=== PATIENT | male | born 1975 | race Caucasian/White ===

== ENCOUNTER 2020-11-09 14:05 | Emergency (ER) | payer MEDICAID ==
[2020-11-09] MEDS ORDERED: Sodium Chloride 0.9% 10 ML Syringe FLUSH PRN (14:29)
[2020-11-09] MEDS ORDERED: Piperacillin/Tazobactam 4.5 GM in Sodium Chloride 0.9% 100 ML IV ONE (14:36)
[2020-11-09] MEDS ORDERED: Lactated Ringers 1,000 ML IV SCH (14:45)
[2020-11-09 15:00] VITALS: BP 144/83; PULSE 85
--- NOTE | 2020-11-09 15:03 | EDM.PDOC ---
ED HPI GENERAL MEDICAL PROBLEM - General Stated Complaint: INFECTION IN RIGHT FOOT Time Seen by Provider: 11/09/20 14:30 Source of Information: Reports: Patient History Limitations: Reports: No Limitations - History of Present Illness INITIAL COMMENTS - FREE TEXT/NARRATIVE: Patient comes emergency department today with complaints of a possible infection to his right lower extremity. This patient is a diabetic who does not know when the redness and irritation started to his right foot is he has diabetic neuropathy and does not have much sensation in his lower extremities. He noticed today that he had quite a bit of blood on his sock when he was changing it so he actually looked at his foot today and noticed that it was quite red and swollen and hot to touch primarily the fourth toe and on the dorsum of the forefoot as well. He denies any recent injury trauma or breaks in the skin to the right lower extremity. He does complain of generalized malaise fatigue and some body aches. Subjective fever and chills. No cough no shortness of breath or difficulty breathing. No weakness dizziness lightheadedness. No abdominal pain nausea or vomiting. He is a diabetic who states his blood sugars have been absolutely perfect at 120 for the last I don't know how many days. No COVID exposure no COVID symptoms. Right Foot Pain Score (Numeric/FACES): 4 - Related Data Allergies Allergy/AdvReac Type Severity Reaction Status Date / Time No Known Allergies Allergy Verified 11/09/20 15:03 Home Meds: Home Meds Levothyroxine 112 mcg PO DAILY 10/21/16 [History] Pregabalin [Lyrica] 75 mg PO BID 10/21/16 [History] atorvaSTATin [Lipitor] 80 mg PO BEDTIME 10/21/16 [History] sitaGLIPtin Phos/Metformin HCl [Janumet Xr 100-1,000 mg Tablet] 1 tab PO DAILY 10/21/16 [History] Metoprolol Tartrate [Lopressor] 12.5 mg PO Q12HR 08/25/17 [History] Aspirin 81 mg PO DAILY 11/09/20 [History] glipiZIDE [Glipizide ER] 10 mg PO DAILY 11/09/20 [History] Past Medical History HEENT History: Reports: Other (See Below) Other HEENT History: tooth pain Cardiovascular History: Reports: High Cholesterol, RI, Stents Neurological History: Reports: Neuropathy, Diabetic Endocrine/Metabolic History: Reports: Hypothyroidism Social & Family History - Family History Family Medical History: No Pertinent Family History Review of Systems - Review of Systems Review Of Systems: Comprehensive ROS is negative, except as noted in HPI. ED EXAM, GENERAL - Physical Exam Exam: See Below Exam Limited By: No Limitations General Appearance: Alert, WD/WN, No Apparent Distress Ears: Normal External Exam Nose: Normal Inspection Throat/Mouth: Normal Inspection Head: Atraumatic, Normocephalic Neck: Normal Inspection, Supple Respiratory/Chest: No Respiratory Distress, Lungs Clear, Normal Breath Sounds, Chest Non-Tender Cardiovascular: Normal Peripheral Pulses, Regular Rate, Rhythm Peripheral Pulses: 2+: Radial (L), Radial (R), Posterior Tibial (L), Posterior Tibial (R), Dorsalis Pedis (L), Dorsalis Pedis (R) GI/Abdominal: Normal Bowel Sounds, Soft (Male) Exam: Deferred Rectal (Males) Exam: Deferred Back Exam: Normal Inspection, Full Range of Motion Extremities: Normal Range of Motion, Normal Capillary Refill. No: Normal Inspection (His left lower extremity is unremarkable. His right lower extremity is fourth toe on the right foot is quite erythematous swollen. There is erythema of the third fourth and fifth toes more of the fourth toe than anything. There is also some erythema extending up the dorsum of the foot. There is a partial-thickness diabetic type ulcer on the right distal lateral fourth digit touching the fifth toe. There is a small amount of bleeding and discharge. A culture was obtained from this. This is more of a generalized erythema without lymphangitis. No other breaks in the skin. He has palpable pulses.) Neurological: Alert, Oriented, Normal Cognition, No Motor/Sensory Deficits Psychiatric: Normal Affect, Normal Mood Skin Exam: Warm, Dry, Intact, Normal Color, No Rash Course - Vital Signs Last Recorded V/S: Last Vital Signs Temp 97.2 F 11/09/20 14:10 Pulse 85 11/09/20 14:10 Resp 16 11/09/20 14:10 BP 144/83 H 11/09/20 14:10 Pulse Ox 99 11/09/20 14:10 - Orders/Labs/Meds Orders: Active Orders 24 hr Category Date Time Status CULTURE BLOOD [BC] Stat Lab 11/09/20 14:39 Received CULTURE BLOOD [BC] Stat Lab 11/09/20 14:44 Received CULTURE WOUND [RM] Stat Lab 11/09/20 14:45 Received Blood Culture x2 Reflex Set [OM.PC] Stat Oth 11/09/20 14:30 Ordered Peripheral IV Insertion Adult [OM.PC] Stat Oth 11/09/20 14:29 Ordered Labs: Laboratory Tests 11/09/20 11/09/20 11/09/20 Range/Units 14:39 14:39 14:39 WBC 11.2 H (4.0-10.0) x10^3/uL RBC 4.33 L (4.5-6.0) x10^6/uL Hgb 14.0 (14.0-18.0) g/dL Hct 39.5 L (40.0-52.0) % MCV 91.2 (78.0-93.0) fL MCH 32.3 H (26.0-32.0) pg MCHC 35.4 (32.0-36.0) g/dL RDW Coeff of Vishal 12.4 (10.0-15.0) % Plt Count 138 (130-400) x10^3/uL Neut % (Auto) 78.2 (50.0-80.0) % Lymph % (Auto) 12.7 L (25.0-50.0) % [place] % (Auto) 6.0 (2.0-11.0) % Eos % (Auto) 2.9 (0.0-4.0) % Baso % (Auto) 0.2 (0.2-1.2) % Sodium 136 (136-145) mmol/L Potassium 3.7 (3.5-5.1) mmol/L Chloride 98 (98-107) mmol/L Carbon Dioxide 31 (21-32) mmol/L Anion Gap 10.7 (5-15) mmol/L BUN 14 (7-18) mg/dL Creatinine 1.1 (0.70-1.30) mg/dL Est Cr Clr Drug Dosing TNP Estimated GFR (MDRD) > 60 Glucose 280 H (74-106) mg/dL Lactic Acid 1.1 (0.4-2.0) mmol/L Calcium 8.9 (8.5-10.1) mg/dL Corrected Calcium 9.14 (8.5-10.1) mg/dL Total Bilirubin 0.8 (0.2-1.0) mg/dL AST 16 (15-37) U/L ALT 29 (16-63) U/L Alkaline Phosphatase 116 (46-116) U/L C-Reactive Protein 16.5 H (<=0.9) mg/dL Total Protein 7.9 (6.4-8.2) g/dL Albumin 3.7 (3.4-5.0) g/dL Globulin 4.2 Albumin/Globulin Ratio 0.88 Meds: Medications Discontinued Medications Generic Name Dose Route Start Last Admin Trade Name Freq PRN Reason Stop Dose Admin Piperacillin Sod/Tazobactam 100 mls @ 200 mls/hr 11/09/20 14:36 11/09/20 14:51 Sod 4.5 gm/ Sodium Chloride IV 11/09/20 15:05 200 mls/hr STAT ONE Administration Vancomycin HCl 1.5 gm/ Sodium 250 mls @ 250 mls/hr 11/09/20 14:36 11/09/20 15:28 Chloride IV 11/09/20 15:35 250 mls/hr STAT ONE Administration Lactated Ringer's 1,000 mls @ 125 mls/hr 11/09/20 14:45 11/09/20 14:50 Ringers, Lactated IV 125 mls/hr ASDIRECTED YURY Administration Iopamidol 100 ml 11/09/20 16:00 11/09/20 16:02 Isovue-300 (61%) IVPUSH 11/09/20 16:01 100 ml ONETIME ONE Administration Sodium Chloride 10 ml 11/09/20 14:29 Saline Flush FLUSH ASDIRECTED PRN Keep Vein Open - Radiology Interpretation Free Text/Narrative:: CT of the right lower extremity per radiology shows no CT evidence of osteomyelitis consider MRI diffuse soft tissue edema consistent with cellulitis. No fluid collection for diagnosis of abscess. No destructive bone change. - Re-Assessments/Exams Free Text/Narrative Re-Assessment/Exam: 11/09/20 15:05 IV was established blood was drawn. Blood cultures x2 pending. Culture of the discharge from the right fourth toe obtained and sent to the lab. Zosyn 4.5 g IV piggyback for the coverage of Pseudomonas and vancomycin 1.5 g IV piggyback for MRSA coverage. CT with contrast lower extremity assessing for osteo and/or abscess. 11/09/20 Laboratory evaluation with a white blood cell count of 11.2, hemoglobin 14 platelets normal. CMP unremarkable other than a blood sugar of 280. Patient stated that he had eaten multiple bowls of soup as well as a sandwich prior to presentation in the emergency department has been taking his diabetic medications as prescribed. C-reactive protein 16.5. CT scan negative for any osteomyelitis and/or abscess. Although it is only been a short period of time the patient feels that his foot feels better and he is able to move it more and it is not as tight as when he initially got here. I did outline the erythema on his right foot. I would like him to receive IV antibiotics at least for the next 24 hours if not longer. I did offer observation and/or outpatient antibiotic therapy for which he chose outpatient antibiotic therapy. And watch his blood sugars closely at home and document them and bring them in so I can evaluate if he needs better management of his diabetes during this infection. Recheck him at 24 hours to determine if we continue with IV antibiotics or switch to orals. If it anytime the erythema spreads outside the line determined in the emergency department or develops worsening systemic complaints we will hospitalize him. He is comfortable with this plan his questions are answered. Detailed instructions were given to him to when to return for his outpatient antibiotics for Zosyn as well as vancomycin. We are doing high-dose Zosyn for the coverage Pseudomonas as this is a diabetic severe foot infection with some maceration between the toes. Departure - Departure Time of Disposition: 17:45 Disposition: Home, Self-Care 01 Clinical Impression: Diabetic infection of right foot Type 2 diabetes mellitus Qualifiers: Diabetes mellitus watermaster insulin use: without watermaster use Diabetes mellitus complication status: with other specified complication Qualified Code(s): E11.69 - Type 2 diabetes mellitus with other specified complication - Discharge Information Instructions: Type 2 Diabetes Mellitus, Self Care, Adult, [id number] Referrals: PCP,None [Primary Care Provider] - Forms: ED Department Discharge Additional Instructions: Return for outpatient antibiotics for at least the next 24 hrs. 9pm tonight. 3am 11/10/20, 9am and 3pm. I will see you in about 24 hours to see how the therapy is going. Please check your blood sugars 4 times a day at home as well. Tylenol as needed for pain. Cleanse the wound on your foot twice daily with soap and water. Dry your foot and then allow to air dry. Make sure and dry between your toes. Put that dressing between your 4th and 5th toes to the right foot until it is healed. Return if anything new or worse. Sepsis Event Note (ED) - Focused Exam Vital Signs: Vital Signs Temp Pulse Resp BP Pulse Ox 11/09/20 14:10 97.2 F 85 16 144/83 H 99 - My Orders Last 24 Hours: My Active Orders 11/09/20 14:29 Peripheral IV Insertion Adult [OM.PC] Stat 11/09/20 14:30 Blood Culture x2 Reflex Set [OM.PC] Stat 11/09/20 14:39 CULTURE BLOOD [BC] Stat 11/09/20 14:44 CULTURE BLOOD [BC] Stat 11/09/20 14:45 CULTURE WOUND [RM] Stat - Assessment/Plan Last 24 Hours: My Active Orders 11/09/20 14:29 Peripheral IV Insertion Adult [OM.PC] Stat 11/09/20 14:30 Blood Culture x2 Reflex Set [OM.PC] Stat 11/09/20 14:39 CULTURE BLOOD [BC] Stat 11/09/20 14:44 CULTURE BLOOD [BC] Stat 11/09/20 14:45 CULTURE WOUND [RM] Stat Assessment:: Severe diabetic foot infection DM II Hyperglycemia Plan: Return for outpatient antibiotics for at least the next 24 hrs. 9pm tonight. 3am 11/10/20, 9am and 3pm. I will see you in about 24 hours to see how the therapy is going. Please check your blood sugars 4 times a day at home as well. Tylenol as needed for pain. Cleanse the wound on your foot twice daily with soap and water. Dry your foot and then allow to air dry. Make sure and dry between your toes. Put that dressing between your 4th and 5th toes to the right foot until it is healed. Return if anything new or worse.
[2020-11-09 15:16] LABS: CHLORIDE,CL 98 mmol/L (98-107); SODIUM,NA 136 mmol/L (136-145)
[2020-11-09 15:17] LABS: ANION GAP 10.7 mmol/L (5-15)
[2020-11-09] MEDS ORDERED: Iopamidol 612 MG/ML 50 ML SDV IARTIC ONE (15:53)
[2020-11-09] MEDS ORDERED: Iopamidol 612 MG/ML 100 ML Bottle IVPUSH ONE (16:00)
--- NOTE | 2020-11-09 16:13 | CT ---
[id number] CT/CT Foot Right W IV Exam: CT Foot Right W IV Clinical Data: DIABETIC FOOT INFECTION COMPARISON: NO PREVIOUS SIMILAR EXAM IS AVAILABLE FINDINGS: There is soft tissue edema There is no destructive bone change There is no air in the soft tissues either. There is no radiopaque foreign body There is no discrete fluid collection seen to make the diagnosis of an abscess There is likely tenosynovitis involving the plantar tendon IMPRESSION: NO CT EVIDENCE OF OSTEOMYELITIS CONSIDER MRI WHEN AVAILABLE DIFFUSE SOFT TISSUE EDEMA CONSISTENT WITH CELLULITIS Dallas Valles MD 11/09/20 [id number] Thank you for allowing us to participate in the care of your patient.
== END 2020-11-09 17:58 | disposition home or self-care (01) ==
LOC: VM.ED 14:05
DX: E11.621 Type 2 diabetes mellitus with foot ulcer (principal); L97.519 Non-pressure chronic ulcer of other part of right foot with unspecified severity; E11.69 Type 2 diabetes mellitus with other specified complication; L08.9 Local infection of the skin and subcutaneous tissue, unspecified; E78.00 Pure hypercholesterolemia, unspecified; E11.40 Type 2 diabetes mellitus with diabetic neuropathy, unspecified; I25.2 Old myocardial infarction; Z95.5 Presence of coronary angioplasty implant and graft; E03.9 Hypothyroidism, unspecified; Z79.82 Long term (current) use of aspirin; Z79.84 Long term (current) use of oral hypoglycemic drugs
CPT/HCPCS: 36415; 73701; 80053; 83605; 85025; 86140; 87040; 87070; 96365; 96366; 96367; 99284; 99284-25; J2543; J3370; J7050; J7120; Q9967

== ENCOUNTER 2024-04-16 22:45 | Emergency (ER) | payer MEDICAID ==
[2024-04-16] MEDS: Ondansetron 4 MG Tab.DIS PO ONE (23:04)
[2024-04-16] MEDS: Alum Hydrox/Mag Hydrox/Simeth 30 ML, Lidocaine 2% 15 ML PO ONE (23:04)
[2024-04-16 23:10] VITALS: BP 95/60; PULSE 80
[2024-04-16 23:42] LABS: BASOPHILS PERCENT AUTO 0.3 % (0.2-1.2); EOSINOPHILS ABSOLUTE AUTO 0.2 x10^3/uL (0.0-0.5); HEMATOCRIT 37.8 % (40.0-52.0); HEMOGLOBIN 13.5 g/dL (14.0-18.0); IMMATURE GRAN ABSOLUTE AUTO 0.02 x10^3/uL (0.00-0.07); LYMPHOCYTES ABSOLUTE AUTO 1.5 x10^3/uL (1.0-4.8); LYMPHOCYTES PERCENT AUTO 14.6 % (25.0-50.0); MEAN CORPUSCULAR HEMOGLOBIN 32.2 pg (26.0-32.0); MEAN CORPUSCULAR HGB CONC 35.7 g/dL (32.0-36.0); MEAN CORPUSCULAR VOLUME 90.2 fL (78.0-93.0); MONOCYTES ABSOLUTE AUTO 0.6 x10^3/uL (0.0-0.8); MONOCYTES PERCENT AUTO 5.7 % (2.0-11.0); NEUTROPHILS ABSOLUTE AUTO 7.7 x10^3/uL (1.8-7.7); NEUTROPHILS PERCENT AUTO 77.2 % (50.0-80.0); PLATELET COUNT,PLT 173 x10^3/uL (130-400); RED BLOOD CELL COUNT 4.19 x10^6/uL (4.5-6.0)
[2024-04-17] LABS: LACTIC ACID 0.8 mmol/L (0.4-2.0)
[2024-04-17 00:07] LABS: A/G RATIO 0.84; ALANINE AMINOTRANSFERASE,ALT 24 U/L (16-63); ALBUMIN 3.2 g/dL (3.4-5.0); ALKALINE PHOSPHATASE 213 U/L (46-116); AMYLASE 38 U/L (25-115); ANION GAP 15.4 mmol/L (5-15); ASPARTATE AMNIOTRANSFERASE,AST 11 U/L (15-37); BILIRUBIN TOTAL 0.4 mg/dL (0.2-1.0); BLOOD UREA NITROGEN,BUN 25 mg/dL (7-18); C-REACTIVE PROTEIN 1.15 mg/dL (<=0.50); CALCIUM 9.4 mg/dL (8.5-10.1); CARBON DIOXIDE,CO2 29 mmol/L (21-32); CHLORIDE,CL 93 mmol/L (98-107); CREATININE 1.3 mg/dL (0.70-1.30); LIPASE 196 U/L (19-71); POTASSIUM,K 4.4 mmol/L (3.5-5.1); SODIUM,NA 133 mmol/L (136-145)
[2024-04-17 00:08] LABS: ESTIMATED GFR 67 mL/min (>=60); GLUCOSE RANDOM 570 mg/dL (70-99)
[2024-04-17] MEDS: Lactated Ringers 1,000 ML IV ONE (00:15)
[2024-04-17 00:17] LABS: APPEARANCE,URINE CLEAR (CLEAR); BILIRUBIN,URINE NEGATIVE (NEGATIVE); COLOR,URINE YELLOW (YELLOW); GLUCOSE,URINE 500 mg/dL (NEGATIVE); KETONES,URINE 15 mg/dL (NEGATIVE); LEUKOCYTE ESTERASE,URINE NEGATIVE (NEGATIVE); NITRITE,URINE NEGATIVE (NEGATIVE); OCCULT BLOOD,URINE TRACE-INTACT (NEGATIVE); PH,URINE 6.5 (5.0-8.0); PROTEIN,URINE TRACE mg/dL (NEGATIVE); UROBILINOGEN,URINE 0.2 EU/dL (0.2)
[2024-04-17 00:18] LABS: BACTERIA,URINE NOT SEEN /HPF (NOT SEEN); HYALINE CASTS,URINE OCCASIONAL; SQUAMOUS EPITHELIAL CELLS,UR NOT SEEN /HPF (NOT SEEN); WBC,URINE 0-5 /HPF (NOT SEEN)
[2024-04-17 00:19] LABS: MUCUS,URINE RARE /LPF (NOT SEEN); RBC,URINE 0-5 /HPF (NOT SEEN)
[2024-04-17 00:36] LABS: HCO3 VENOUS,POC 27 mmol/L (22-29); O2 SATURATION VENOUS,POC 80 %; PCO2 VENOUS,POC 37 mmHg (41-51); PH VENOUS,POC 7.47 pH (7.32-7.43); PO2 VENOUS,POC 42 mmHg
== END 2024-04-17 00:56 | disposition left against medical advice (07) ==
LOC: VM.ED 22:45
DX: K85.90 Acute pancreatitis without necrosis or infection, unspecified (principal); E86.0 Dehydration; E11.65 Type 2 diabetes mellitus with hyperglycemia; E78.00 Pure hypercholesterolemia, unspecified; I25.2 Old myocardial infarction; I50.9 Heart failure, unspecified; E11.40 Type 2 diabetes mellitus with diabetic neuropathy, unspecified; E03.9 Hypothyroidism, unspecified; F17.210 Nicotine dependence, cigarettes, uncomplicated; Z95.5 Presence of coronary angioplasty implant and graft; Z79.890 Hormone replacement therapy; Z79.82 Long term (current) use of aspirin; Z79.899 Other long term (current) drug therapy; Z79.84 Long term (current) use of oral hypoglycemic drugs
CPT/HCPCS: 36415; 74019; 80053; 81001; 82150; 82803; 83605; 83690; 85025; 86140; 96360; 99284; A9270; J7120

== ENCOUNTER 2024-04-19 02:39 | Emergency (ER) | payer SELFPAY ==
[2024-04-19 02:54] VITALS: BP 109/76; PULSE 89
[2024-04-19] MEDS: Magnesium Citrate Solution 296 ML Bottle PO ONE (02:58)
== END 2024-04-19 03:01 | disposition home or self-care (01) ==
LOC: VM.ED 02:39
DX: K59.00 Constipation, unspecified (principal); E78.00 Pure hypercholesterolemia, unspecified; E10.21 Type 1 diabetes mellitus with diabetic nephropathy; E03.9 Hypothyroidism, unspecified; Z79.899 Other long term (current) drug therapy; Z79.82 Long term (current) use of aspirin
CPT/HCPCS: 99283

== ENCOUNTER 2024-08-17 14:57 | Emergency (ER) | payer MEDICARE, MEDICAID ==
[2024-08-17 17:03] VITALS: BP 102/62; PULSE 82
== END 2024-08-17 17:09 | disposition home or self-care (01) ==
LOC: VM.ED 14:57
DX: J40 Bronchitis, not specified as acute or chronic (principal); J18.9 Pneumonia, unspecified organism; E78.00 Pure hypercholesterolemia, unspecified; I25.2 Old myocardial infarction; E10.40 Type 1 diabetes mellitus with diabetic neuropathy, unspecified; E03.9 Hypothyroidism, unspecified; Z79.82 Long term (current) use of aspirin; Z79.899 Other long term (current) drug therapy
CPT/HCPCS: 71045; 87428-QW; 99283

== ENCOUNTER 2024-08-21 08:45 | Emergency (ER) | payer MEDICARE, MEDICAID ==
[2024-08-21] MEDS: Lactated Ringers 1,000 ML IV ONE (08:55)
[2024-08-21] MEDS ORDERED: Sodium Chloride 0.9% 10 ML Syringe FLUSH PRN (08:57)
[2024-08-21 09:27] LABS: HCO3 VENOUS,POC 26 mmol/L (22-29); O2 SATURATION VENOUS,POC 50 %; PCO2 VENOUS,POC 44 mmHg (41-51); PH VENOUS,POC 7.38 pH (7.32-7.43); PO2 VENOUS,POC 27 mmHg
[2024-08-21 09:32] LABS: HEMATOCRIT 36.5 % (40.0-52.0); HEMOGLOBIN 12.4 g/dL (14.0-18.0); MEAN CORPUSCULAR HEMOGLOBIN 32.9 pg (26.0-32.0); MEAN CORPUSCULAR VOLUME 96.8 fL (78.0-93.0); PLATELET COUNT,PLT 206 x10^3/uL (130-400); RED BLOOD CELL COUNT 3.77 x10^6/uL (4.5-6.0); WHITE BLOOD CELL COUNT,WBC 17.3 x10^3/uL (4.0-10.0)
[2024-08-21] MEDS: cefTRIAXone 1 GM Vial IVPUSH ONE (09:42)
[2024-08-21 09:47] LABS: LACTIC ACID 1.1 mmol/L (0.4-2.0)
[2024-08-21 09:50] LABS: INR 0.9 (0.9-1.1); PROTHROMBIN TIME 9.2 SEC (8.9-11.5); PTT,PARTIAL THROMBOPLSTIN TIME 31.7 SEC (21.9-33.8)
[2024-08-21 10:02] LABS: A/G RATIO 0.4; ALBUMIN 2.3 g/dL (3.4-5.0); BILIRUBIN TOTAL 1.1 mg/dL (0.2-1.0); CALCIUM 10.4 mg/dL (8.5-10.1); CREATININE 1.8 mg/dL (0.70-1.30); EST CRCL DRUG DOSING (CG) 48.55 mL/min; MAGNESIUM 2.1 mg/dL (1.8-2.4); POTASSIUM,K 5.1 mmol/L (3.5-5.1); PROTEIN TOTAL,TP 8.1 g/dL (6.4-8.2)
[2024-08-21 10:05] LABS: ANION GAP 19.1 mmol/L (5-15)
[2024-08-21 10:09] LABS: APPEARANCE,URINE CLEAR (CLEAR); BILIRUBIN,URINE NEGATIVE (NEGATIVE); COLOR,URINE LIGHT YELLOW (YELLOW); GLUCOSE,URINE 500 mg/dL (NEGATIVE); KETONES,URINE 15 mg/dL (NEGATIVE); LEUKOCYTE ESTERASE,URINE NEGATIVE (NEGATIVE); NITRITE,URINE NEGATIVE (NEGATIVE); OCCULT BLOOD,URINE NEGATIVE (NEGATIVE); PH,URINE 5.5 (5.0-8.0); PROTEIN,URINE 30 mg/dL (NEGATIVE); UROBILINOGEN,URINE 0.2 EU/dL (0.2)
[2024-08-21] MEDS ORDERED: Glucagon,Human Recombinant 1 MG Vial IM PRN (10:09)
[2024-08-21] MEDS ORDERED: 50% Dextrose in Water 50 ML Syringe IVPUSH PRN (10:09)
[2024-08-21 10:12] LABS: C-REACTIVE PROTEIN 56.92 mg/dL (<=0.50)
[2024-08-21 10:25] LABS: AMORPHOUS SEDIMENT,URINE MODERATE; BACTERIA,URINE NOT SEEN /HPF (NOT SEEN); HYALINE CASTS,URINE FEW; MUCUS,URINE NOT SEEN /LPF (NOT SEEN); RBC,URINE NOT SEEN /HPF (NOT SEEN); SQUAMOUS EPITHELIAL CELLS,UR RARE /HPF (NOT SEEN); WBC,URINE NOT SEEN /HPF (NOT SEEN)
[2024-08-21 10:30] LABS: BAND PERCENT MAN 6 % (0-6); LYMPHOCYTES ABSOLUTE MAN 0.9 x10^3/uL (1.0-4.8); LYMPHOCYTES PERCENT MAN 5 % (25-50); MONOCYTES ABSOLUTE MAN 0.7 x10^3/uL (0.0-0.8); MONOCYTES PERCENT MAN 4 % (2-11); NEUTROPHILS ABSOLUTE MAN 15.7 x10^3/uL (1.8-7.7); PLATELET COUNT ESTIMATE ADEQUATE; SEG NEUTROPHILS PERCENT MAN 85 % (50-80); TOXIC GRANULATION 1+ SLIGHT; VACUOLATED NEUTROPHILS 1+ SLIGHT
[2024-08-21] MEDS ORDERED: Insulin Regular in 0.9 % NACL 100 ML IV SCH (10:30)
[2024-08-21] MEDS ORDERED: Furosemide 40 MG Tab PO ONE (10:48)
[2024-08-21] MEDS: Furosemide 40 MG/4 ML VIAL IV ONE (10:57)
[2024-08-21] MEDS: Insulin Regular, Human 100 Units/ML 3 ML Vial IVPUSH ONE (10:59)
[2024-08-21] MEDS: Piperacillin/Tazobactam 4.5 GM in Sodium Chloride 0.9% 100 ML IV ONE (11:01)
[2024-08-21] MEDS: VANCOmycin 1.25 GM/250 ML 1.25 GM in Premix Bag 1 BAG IV ONE (11:04)
[2024-08-21] MEDS: Insulin Regular in 0.9 % NACL 100 ML IV SCH (11:05)
[2024-08-21] MEDS: fentaNYL 50 MCG/ML SDV IVPUSH ONE (11:52)
[2024-08-21 11:57] LABS: ANION GAP 21.6 mmol/L (5-15); CALCIUM 9.8 mg/dL (8.5-10.1); CREATININE 1.7 mg/dL (0.70-1.30); EST CRCL DRUG DOSING (CG) 51.41 mL/min; POTASSIUM,K 4.6 mmol/L (3.5-5.1)
[2024-08-21 12:43] VITALS: BP 128/78; PULSE 77
== END 2024-08-21 12:25 | disposition short-term general hospital (02) ==
LOC: VM.ED 08:45
DX: J96.90 Respiratory failure, unspecified, unspecified whether with hypoxia or hypercapnia (principal); E10.69 Type 1 diabetes mellitus with other specified complication; E87.0 Hyperosmolality and hypernatremia; I25.2 Old myocardial infarction; Z95.5 Presence of coronary angioplasty implant and graft; I25.10 Atherosclerotic heart disease of native coronary artery without angina pectoris; Z95.0 Presence of cardiac pacemaker
CPT/HCPCS: 36415; 51702; 71045; 80048; 80053; 81001; 82803; 82947; 83605; 83735; 83880; 84484; 85025; 85379; 85610; 85730; 86140; 87040; 87077; 87428; 94660; 96361; 96365; 96367; 96375; 99284; 99285; J0696; J1815; J1940; J2543; J3010; J3372; J3490; J7120

== ENCOUNTER 2024-08-27 09:26 | Inpatient (IN) | payer MEDICARE, MEDICAID ==
[2024-08-27] MEDS ORDERED: Nitroglycerin 0.4 MG Tab.SL SL PRN (16:36)
[2024-08-27] MEDS: Midodrine 5 MG Tab PO SCH (18:12)
[2024-08-27] MEDS: Insulin Lispro 100 Units/ML 3 ML Vial SUBCUT SCH (18:12)
[2024-08-27] MEDS: Enoxaparin 40 MG/0.4 ML Syringe SUBCUT SCH (20:23)
[2024-08-27] MEDS: Pregabalin 25 MG Cap PO SCH (20:23)
[2024-08-27] MEDS: Melatonin 3 MG Tab PO SCH (20:23)
[2024-08-28] MEDS: Levothyroxine 125 MCG Tab PO SCH (06:08)
[2024-08-28 08:00] LABS: BASOPHILS PERCENT AUTO 0.1 % (0.2-1.2); EOSINOPHILS PERCENT AUTO 0.4 % (0.0-4.0); HEMATOCRIT 31.2 % (40.0-52.0); HEMOGLOBIN 10.3 g/dL (14.0-18.0); IMMATURE GRAN ABSOLUTE AUTO 0.32 x10^3/uL (0.00-0.07); LYMPHOCYTES ABSOLUTE AUTO 0.9 x10^3/uL (1.0-4.8); LYMPHOCYTES PERCENT AUTO 8.1 % (25.0-50.0); MEAN CORPUSCULAR HEMOGLOBIN 32.5 pg (26.0-32.0); MEAN CORPUSCULAR VOLUME 98.4 fL (78.0-93.0); MONOCYTES ABSOLUTE AUTO 0.6 x10^3/uL (0.0-0.8); MONOCYTES PERCENT AUTO 5.5 % (2.0-11.0); NEUTROPHILS ABSOLUTE AUTO 9.4 x10^3/uL (1.8-7.7); NEUTROPHILS PERCENT AUTO 83.1 % (50.0-80.0); PLATELET COUNT,PLT 345 x10^3/uL (130-400); RED BLOOD CELL COUNT 3.17 x10^6/uL (4.5-6.0); WHITE BLOOD CELL COUNT,WBC 11.3 x10^3/uL (4.0-10.0)
[2024-08-28] MEDS: Cefuroxime 250 MG Tab PO SCH (08:09)
[2024-08-28] MEDS: atorvaSTATin 40 MG Tab PO SCH (08:09)
[2024-08-28] MEDS: predniSONE 10 MG Tab PO SCH (08:09)
[2024-08-28] MEDS: Multivitamin Tab PO SCH (08:10)
[2024-08-28] MEDS: Aspirin 81 MG Tab.EC PO SCH (08:10)
[2024-08-28] MEDS: Magnesium Oxide 400 MG Tab PO SCH (08:10)
[2024-08-28] MEDS: Pantoprazole 40 MG Tab.CR PO SCH (08:10)
[2024-08-28] MEDS: Metoprolol Succinate 25 MG Tab.ER PO SCH (08:11)
[2024-08-28] MEDS: Lisinopril 2.5 MG Tab PO SCH (08:12)
[2024-08-28] MEDS: Insulin Glarg,Human.Rec.Analog 100 Unit/ML 10 ML Vial SUBCUT SCH (08:13)
[2024-08-28 08:25] LABS: A/G RATIO 0.37; ALBUMIN 1.7 g/dL (3.4-5.0); BILIRUBIN TOTAL 0.3 mg/dL (0.2-1.0); CALCIUM 8.6 mg/dL (8.5-10.1); CREATININE 0.9 mg/dL (0.70-1.30); EST CRCL DRUG DOSING (CG) 97.1 mL/min; MAGNESIUM 1.8 mg/dL (1.8-2.4); POTASSIUM,K 4.1 mmol/L (3.5-5.1); PROTEIN TOTAL,TP 6.3 g/dL (6.4-8.2)
[2024-08-28 08:34] LABS: ANION GAP 9.1 mmol/L (5-15)
[2024-08-28] MEDS ORDERED: Enoxaparin 40 MG/0.4 ML Syringe SUBCUT SCH (09:00)
[2024-08-28] MEDS: Acetaminophen 650 MG Tab.ER PO PRN (11:26)
[2024-08-29] MEDS: Furosemide 20 MG Tab PO SCH (08:34)
[2024-08-29] MEDS: Insulin Glarg,Human.Rec.Analog 100 Unit/ML 10 ML Vial SUBCUT SCH (08:56)
[2024-08-30 07:34] LABS: CALCIUM 8.1 mg/dL (8.5-10.1); CREATININE 0.9 mg/dL (0.70-1.30); EST CRCL DRUG DOSING (CG) 97.1 mL/min; POTASSIUM,K 3.9 mmol/L (3.5-5.1)
[2024-08-30 07:40] LABS: ANION GAP 9.9 mmol/L (5-15)
[2024-08-31 06:56] LABS: HEMATOCRIT 29.4 % (40.0-52.0); HEMOGLOBIN 9.9 g/dL (14.0-18.0); MEAN CORPUSCULAR HEMOGLOBIN 32.6 pg (26.0-32.0); MEAN CORPUSCULAR HGB CONC 33.7 g/dL (32.0-36.0); MEAN CORPUSCULAR VOLUME 96.7 fL (78.0-93.0); RED BLOOD CELL COUNT 3.04 x10^6/uL (4.5-6.0); WHITE BLOOD CELL COUNT,WBC 11.2 x10^3/uL (4.0-10.0)
[2024-09-03 06:56] LABS: HEMATOCRIT 30.1 % (40.0-52.0); HEMOGLOBIN 9.9 g/dL (14.0-18.0); MEAN CORPUSCULAR HEMOGLOBIN 32.4 pg (26.0-32.0); MEAN CORPUSCULAR HGB CONC 32.9 g/dL (32.0-36.0); MEAN CORPUSCULAR VOLUME 98.4 fL (78.0-93.0); RED BLOOD CELL COUNT 3.06 x10^6/uL (4.5-6.0); WHITE BLOOD CELL COUNT,WBC 9.6 x10^3/uL (4.0-10.0)
[2024-09-03 07:31] LABS: A/G RATIO 0.41; BILIRUBIN TOTAL 0.3 mg/dL (0.2-1.0); CALCIUM 8.8 mg/dL (8.5-10.1); CREATININE 0.9 mg/dL (0.70-1.30); EST CRCL DRUG DOSING (CG) 97.1 mL/min; POTASSIUM,K 3.9 mmol/L (3.5-5.1); PROTEIN TOTAL,TP 6.9 g/dL (6.4-8.2)
[2024-09-03 07:37] LABS: ANION GAP 5.9 mmol/L (5-15)
[2024-09-03 08:08] LABS: TSH ULTRASENSITIVE 167.86 uIU/mL (0.358-3.74)
[2024-09-04 05:07] LABS: % TRANSFERRIN SAT 19.5 % (20.0-50.0)
[2024-09-04] MEDS: Albuterol/Ipratropium 3.0-0.5 MG/3 ML Neb Soln NEB PRN (05:44)
[2024-09-06 07:02] LABS: HEMATOCRIT 26.9 % (40.0-52.0); HEMOGLOBIN 8.9 g/dL (14.0-18.0); MEAN CORPUSCULAR HEMOGLOBIN 32.5 pg (26.0-32.0); MEAN CORPUSCULAR HGB CONC 33.1 g/dL (32.0-36.0); MEAN CORPUSCULAR VOLUME 98.2 fL (78.0-93.0); RED BLOOD CELL COUNT 2.74 x10^6/uL (4.5-6.0); WHITE BLOOD CELL COUNT,WBC 10.5 x10^3/uL (4.0-10.0)
[2024-09-06] MEDS: Furosemide 40 MG Tab PO SCH (09:56)
[2024-09-06] MEDS: Furosemide 20 MG/2 ML VIAL IM ONE (12:49)
[2024-09-07] MEDS: Albuterol/Ipratropium 3.0-0.5 MG/3 ML Neb Soln NEB SCH (16:49)
[2024-09-08 07:15] LABS: A/G RATIO 0.35; ALBUMIN 1.6 g/dL (3.4-5.0); BILIRUBIN TOTAL 0.3 mg/dL (0.2-1.0); CALCIUM 8.5 mg/dL (8.5-10.1); CREATININE 0.9 mg/dL (0.70-1.30); EST CRCL DRUG DOSING (CG) 97.1 mL/min; POTASSIUM,K 4.4 mmol/L (3.5-5.1); PROTEIN TOTAL,TP 6.2 g/dL (6.4-8.2)
[2024-09-08 07:19] LABS: ANION GAP 8.4 mmol/L (5-15)
[2024-09-08] MEDS: Furosemide 40 MG Tab PO SCH (08:45)
[2024-09-08] MEDS: Furosemide 20 MG Tab PO SCH (15:02)
[2024-09-09 06:48] LABS: HEMATOCRIT 23.8 % (40.0-52.0); MEAN CORPUSCULAR HEMOGLOBIN 32.5 pg (26.0-32.0); MEAN CORPUSCULAR HGB CONC 33.6 g/dL (32.0-36.0); MEAN CORPUSCULAR VOLUME 96.7 fL (78.0-93.0); RED BLOOD CELL COUNT 2.46 x10^6/uL (4.5-6.0)
[2024-09-09] MEDS: Arformoterol 15 MCG/2 ML Neb Soln INH SCH (12:52)
[2024-09-09] MEDS: Budesonide 0.5 MG/2 ML Neb Susp INH SCH (12:52)
[2024-09-10 07:27] LABS: CALCIUM 8.5 mg/dL (8.5-10.1); CREATININE 1.1 mg/dL (0.70-1.30); EST CRCL DRUG DOSING (CG) 79.45 mL/min; MAGNESIUM 1.5 mg/dL (1.8-2.4); POTASSIUM,K 4.4 mmol/L (3.5-5.1)
[2024-09-10 07:29] LABS: ANION GAP 11.4 mmol/L (5-15)
[2024-09-10] MEDS: Magnesium Oxide 400 MG Tab PO SCH (09:29)
[2024-09-10] MEDS: Torsemide 20 MG Tab PO SCH (09:29)
[2024-09-10] MEDS: Levofloxacin 500 MG Tab PO SCH (15:36)
[2024-09-11] MEDS: Levothyroxine 100 MCG Tab PO SCH (06:06)
[2024-09-11] MEDS: Carvedilol 3.125 MG Tab PO SCH (08:11)
[2024-09-11] MEDS ORDERED: Glucagon,Human Recombinant 1 MG Vial IM PRN (11:35)
[2024-09-12 07:47] LABS: HEMATOCRIT 22.7 % (40.0-52.0); HEMOGLOBIN 7.7 g/dL (14.0-18.0); MEAN CORPUSCULAR HEMOGLOBIN 32.4 pg (26.0-32.0); MEAN CORPUSCULAR HGB CONC 33.9 g/dL (32.0-36.0); MEAN CORPUSCULAR VOLUME 95.4 fL (78.0-93.0); RED BLOOD CELL COUNT 2.38 x10^6/uL (4.5-6.0); WHITE BLOOD CELL COUNT,WBC 6.6 x10^3/uL (4.0-10.0)
[2024-09-12] MEDS ORDERED: Sodium Chloride 0.9% 10 ML Syringe FLUSH PRN (09:43)
[2024-09-12 10:15] LABS: BASE EXCESS ARTERIAL,POC 10 mmol/L ((-2)-3); HCO3 ARTERIAL,POC 31.5 mmol/L (21-28); O2 SATURATION ARTERIAL,POC 96.9 % (94-98); PCO2 ARTERIAL,POC 32 mmHg (35-48); PH ARTERIAL,POC 7.61 pH (7.35-7.45); PO2 ARTERIAL,POC 72 mmHg (83-108); TCO2 ARTERIAL,POC 31.2 mmol/L (22-29)
[2024-09-12 10:25] LABS: BASOPHILS PERCENT AUTO 0.3 % (0.2-1.2); EOSINOPHILS ABSOLUTE AUTO 0.3 x10^3/uL (0.0-0.5); EOSINOPHILS PERCENT AUTO 4.2 % (0.0-4.0); HEMATOCRIT 23.9 % (40.0-52.0); IMMATURE GRAN ABSOLUTE AUTO 0.01 x10^3/uL (0.00-0.07); LYMPHOCYTES PERCENT AUTO 14.4 % (25.0-50.0); MEAN CORPUSCULAR HEMOGLOBIN 31.9 pg (26.0-32.0); MEAN CORPUSCULAR HGB CONC 33.5 g/dL (32.0-36.0); MEAN CORPUSCULAR VOLUME 95.2 fL (78.0-93.0); MONOCYTES ABSOLUTE AUTO 0.5 x10^3/uL (0.0-0.8); MONOCYTES PERCENT AUTO 7.7 % (2.0-11.0); NEUTROPHILS ABSOLUTE AUTO 5.1 x10^3/uL (1.8-7.7); NEUTROPHILS PERCENT AUTO 73.3 % (50.0-80.0); PLATELET COUNT,PLT 257 x10^3/uL (130-400); RED BLOOD CELL COUNT 2.51 x10^6/uL (4.5-6.0); WHITE BLOOD CELL COUNT,WBC 6.9 x10^3/uL (4.0-10.0)
[2024-09-12 10:31] LABS: A/G RATIO 0.35; ALBUMIN 1.9 g/dL (3.4-5.0); ANION GAP 10.3 mmol/L (5-15); BILIRUBIN TOTAL 0.2 mg/dL (0.2-1.0); CALCIUM 9.2 mg/dL (8.5-10.1); CREATININE 1.4 mg/dL (0.70-1.30); EST CRCL DRUG DOSING (CG) 62.42 mL/min; POTASSIUM,K 4.3 mmol/L (3.5-5.1); PROTEIN TOTAL,TP 7.3 g/dL (6.4-8.2)
[2024-09-12] MEDS: Furosemide 40 MG/4 ML VIAL IV ONE (10:50)
[2024-09-12] MEDS: Insulin Lispro 100 Units/ML 3 ML Vial SUBCUT SCH (12:42)
[2024-09-13 07:16] LABS: BASOPHILS PERCENT AUTO 0.3 % (0.2-1.2); EOSINOPHILS ABSOLUTE AUTO 0.3 x10^3/uL (0.0-0.5); EOSINOPHILS PERCENT AUTO 4.4 % (0.0-4.0); HEMATOCRIT 24.6 % (40.0-52.0); HEMOGLOBIN 8.2 g/dL (14.0-18.0); IMMATURE GRAN ABSOLUTE AUTO 0.01 x10^3/uL (0.00-0.07); LYMPHOCYTES ABSOLUTE AUTO 1.2 x10^3/uL (1.0-4.8); LYMPHOCYTES PERCENT AUTO 18.2 % (25.0-50.0); MEAN CORPUSCULAR HGB CONC 33.3 g/dL (32.0-36.0); MEAN CORPUSCULAR VOLUME 96.1 fL (78.0-93.0); MONOCYTES ABSOLUTE AUTO 0.7 x10^3/uL (0.0-0.8); MONOCYTES PERCENT AUTO 10.3 % (2.0-11.0); NEUTROPHILS ABSOLUTE AUTO 4.3 x10^3/uL (1.8-7.7); NEUTROPHILS PERCENT AUTO 66.6 % (50.0-80.0); PLATELET COUNT,PLT 285 x10^3/uL (130-400); RED BLOOD CELL COUNT 2.56 x10^6/uL (4.5-6.0); WHITE BLOOD CELL COUNT,WBC 6.4 x10^3/uL (4.0-10.0)
[2024-09-13 07:44] LABS: A/G RATIO 0.33; ALBUMIN 1.7 g/dL (3.4-5.0); BILIRUBIN TOTAL 0.3 mg/dL (0.2-1.0); CALCIUM 8.9 mg/dL (8.5-10.1); CREATININE 1.5 mg/dL (0.70-1.30); EST CRCL DRUG DOSING (CG) 58.26 mL/min; MAGNESIUM 1.6 mg/dL (1.8-2.4); POTASSIUM,K 4.3 mmol/L (3.5-5.1); PROTEIN TOTAL,TP 6.8 g/dL (6.4-8.2)
[2024-09-13 07:57] LABS: ANION GAP 9.3 mmol/L (5-15)
[2024-09-13] MEDS: Furosemide 20 MG/2 ML VIAL IV SCH (09:13)
[2024-09-13] MEDS: Magnesium Oxide 400 MG Tab PO SCH (09:13)
[2024-09-13 11:33] VITALS: BP 104/60; PULSE 70
[2024-09-13] MEDS ORDERED: Insulin Lispro 100 Units/ML 3 ML Vial SUBCUT SCH ×2 (17:00)
== END 2024-09-13 15:00 | disposition short-term general hospital (02) | DRG 947 ==
LOC: VM.MS 16:03
PROVIDERS: ADMIT Family Medicine; ATTEND Family Medicine
DX: R53.1 Weakness (principal); A41.9 Sepsis, unspecified organism; J96.01 Acute respiratory failure with hypoxia; J15.9 Unspecified bacterial pneumonia; I50.43 Acute on chronic combined systolic (congestive) and diastolic (congestive) heart failure; J44.0 Chronic obstructive pulmonary disease with (acute) lower respiratory infection; N17.9 Acute kidney failure, unspecified; E44.0 Moderate protein-calorie malnutrition; E87.4 Mixed disorder of acid-base balance; N18.9 Chronic kidney disease, unspecified; E11.22 Type 2 diabetes mellitus with diabetic chronic kidney disease; E83.42 Hypomagnesemia; I34.0 Nonrheumatic mitral (valve) insufficiency; I95.9 Hypotension, unspecified; K21.9 Gastro-esophageal reflux disease without esophagitis; I25.2 Old myocardial infarction; E03.9 Hypothyroidism, unspecified; I25.10 Atherosclerotic heart disease of native coronary artery without angina pectoris; D63.1 Anemia in chronic kidney disease; E11.40 Type 2 diabetes mellitus with diabetic neuropathy, unspecified; Z95.0 Presence of cardiac pacemaker; Z95.1 Presence of aortocoronary bypass graft; Z95.5 Presence of coronary angioplasty implant and graft; Z79.4 Long term (current) use of insulin; Z88.8 Allergy status to other drugs, medicaments and biological substances; Z79.82 Long term (current) use of aspirin; Z79.84 Long term (current) use of oral hypoglycemic drugs; Z79.52 Long term (current) use of systemic steroids; Z79.899 Other long term (current) drug therapy; Z68.28 Body mass index [BMI] 28.0-28.9, adult; Z91.148 Patient's other noncompliance with medication regimen for other reason; Z79.890 Hormone replacement therapy
CPT/HCPCS: 36415; 36600; 71045; 71046; 80048; 80053; 82728; 82803; 82947; 83540; 83550; 83735; 83880; 84132; 84443; 85025; 85027; 92610-GN; 94640; 94760; 95851-GO; 97110-GP; 97116-GP; 97161-GP; 97165-GO; 97535-GO; 99307; 99307-GT; A9270-GY; J1650; J1815-GY; J1940; J3490; J7512; J7620-GY

== ENCOUNTER 2024-09-13 08:19 | Inpatient (IN) | payer MEDICARE, MEDICAID ==
[2024-09-13] MEDS ORDERED: Albuterol/Ipratropium 3.0-0.5 MG/3 ML Neb Soln NEB PRN (11:22)
[2024-09-13] MEDS ORDERED: Sodium Chloride 0.9% 10 ML Syringe FLUSH PRN ×2 (11:22)
[2024-09-13] MEDS ORDERED: Glucagon,Human Recombinant 1 MG Vial IM PRN ×2 (11:22)
[2024-09-13] MEDS ORDERED: Nitroglycerin 0.4 MG Tab.SL SL PRN (11:22)
[2024-09-13] MEDS ORDERED: 50% Dextrose in Water 50 ML Syringe IVPUSH PRN (11:22)
[2024-09-13] MEDS: Midodrine 5 MG Tab PO SCH (16:30)
[2024-09-13] MEDS: Furosemide 20 MG/2 ML VIAL IV SCH ×2 (16:31→21:50)
[2024-09-13] MEDS: Magnesium Oxide 400 MG Tab PO SCH (16:31)
[2024-09-13] MEDS: Albuterol/Ipratropium 3.0-0.5 MG/3 ML Neb Soln NEB SCH (16:31)
[2024-09-13] MEDS: Acetaminophen 650 MG Tab.ER PO PRN (17:18)
[2024-09-13] MEDS: Lidocaine 2% HCl 11 ML Jelly Filled Syringe TOP ONE (17:19)
[2024-09-13] MEDS: Levothyroxine 100 MCG Vial IVPUSH SCH (17:26)
[2024-09-13] MEDS: Insulin Lispro 100 Units/ML 3 ML Vial SUBCUT SCH ×2 (17:51→21:48)
[2024-09-13] MEDS ORDERED: Carvedilol 3.125 MG Tab PO SCH (18:00)
[2024-09-13 18:11] LABS: APPEARANCE,URINE CLEAR (CLEAR); BILIRUBIN,URINE NEGATIVE (NEGATIVE); COLOR,URINE YELLOW (YELLOW); GLUCOSE,URINE NEGATIVE (NEGATIVE); KETONES,URINE NEGATIVE (NEGATIVE); LEUKOCYTE ESTERASE,URINE NEGATIVE (NEGATIVE); NITRITE,URINE NEGATIVE (NEGATIVE); OCCULT BLOOD,URINE NEGATIVE (NEGATIVE); PH,URINE 5.5 (5.0-8.0); PROTEIN,URINE NEGATIVE (NEGATIVE); UROBILINOGEN,URINE 0.2 EU/dL (0.2)
[2024-09-13] MEDS: Melatonin 3 MG Tab PO SCH (20:39)
[2024-09-13] MEDS: Pregabalin 25 MG Cap PO SCH (20:39)
[2024-09-13] MEDS: Budesonide 0.5 MG/2 ML Neb Susp INH SCH (20:40)
[2024-09-13] MEDS: Enoxaparin 40 MG/0.4 ML Syringe SUBCUT SCH (20:40)
[2024-09-13] MEDS: Arformoterol 15 MCG/2 ML Neb Soln INH SCH (20:40)
[2024-09-13] MEDS ORDERED: Pregabalin 25 MG Cap PO SCH (21:00)
[2024-09-13] MEDS: Torsemide 20 MG Tab PO SCH (21:48)
[2024-09-14] MEDS: Albuterol 0.083% 2.5 MG/3 ML Neb Soln NEB PRN (04:32)
[2024-09-14] MEDS: Pantoprazole 40 MG Tab.CR PO SCH (06:08)
[2024-09-14 06:57] LABS: BASOPHILS PERCENT AUTO 0.2 % (0.2-1.2); EOSINOPHILS ABSOLUTE AUTO 0.3 x10^3/uL (0.0-0.5); EOSINOPHILS PERCENT AUTO 3.4 % (0.0-4.0); HEMATOCRIT 22.2 % (40.0-52.0); HEMOGLOBIN 7.4 g/dL (14.0-18.0); IMMATURE GRAN ABSOLUTE AUTO 0.02 x10^3/uL (0.00-0.07); LYMPHOCYTES PERCENT AUTO 11.7 % (25.0-50.0); MEAN CORPUSCULAR HEMOGLOBIN 32.2 pg (26.0-32.0); MEAN CORPUSCULAR HGB CONC 33.3 g/dL (32.0-36.0); MEAN CORPUSCULAR VOLUME 96.5 fL (78.0-93.0); MONOCYTES ABSOLUTE AUTO 0.6 x10^3/uL (0.0-0.8); MONOCYTES PERCENT AUTO 7.6 % (2.0-11.0); NEUTROPHILS ABSOLUTE AUTO 6.5 x10^3/uL (1.8-7.7); NEUTROPHILS PERCENT AUTO 76.9 % (50.0-80.0); PLATELET COUNT,PLT 314 x10^3/uL (130-400); WHITE BLOOD CELL COUNT,WBC 8.4 x10^3/uL (4.0-10.0)
[2024-09-14] MEDS ORDERED: Levothyroxine 100 MCG Tab PO SCH (07:00)
[2024-09-14 07:25] LABS: ANION GAP 10.8 mmol/L (5-15); C-REACTIVE PROTEIN 7.01 mg/dL (<=0.50); CREATININE 1.5 mg/dL (0.70-1.30); EST CRCL DRUG DOSING (CG) 58.26 mL/min; POTASSIUM,K 3.8 mmol/L (3.5-5.1)
[2024-09-14] MEDS ORDERED: Lidocaine 2% HCl 11 ML Jelly Filled Syringe MUCMEM PRN (08:15)
[2024-09-14] MEDS: Levofloxacin 500 MG Tab PO SCH (08:59)
[2024-09-14] MEDS: Multivitamin Tab PO SCH (09:00)
[2024-09-14] MEDS: Aspirin 81 MG Tab.EC PO SCH (09:00)
[2024-09-14] MEDS: atorvaSTATin 40 MG Tab PO SCH (09:00)
[2024-09-14] MEDS: Insulin Glarg,Human.Rec.Analog 100 Unit/ML 10 ML Vial SUBCUT SCH (09:01)
[2024-09-14] MEDS: Acetaminophen 325 MG Tab PO ONE (10:45)
[2024-09-14] MEDS: Metoprolol Succinate 25 MG Tab.ER PO SCH (10:46)
[2024-09-15 06:53] LABS: BASOPHILS PERCENT AUTO 0.4 % (0.2-1.2); EOSINOPHILS ABSOLUTE AUTO 0.3 x10^3/uL (0.0-0.5); EOSINOPHILS PERCENT AUTO 4.4 % (0.0-4.0); HEMATOCRIT 26.7 % (40.0-52.0); HEMOGLOBIN 9.1 g/dL (14.0-18.0); IMMATURE GRAN ABSOLUTE AUTO 0.02 x10^3/uL (0.00-0.07); LYMPHOCYTES PERCENT AUTO 13.7 % (25.0-50.0); MEAN CORPUSCULAR HEMOGLOBIN 31.9 pg (26.0-32.0); MEAN CORPUSCULAR HGB CONC 34.1 g/dL (32.0-36.0); MEAN CORPUSCULAR VOLUME 93.7 fL (78.0-93.0); MONOCYTES ABSOLUTE AUTO 0.7 x10^3/uL (0.0-0.8); MONOCYTES PERCENT AUTO 8.9 % (2.0-11.0); NEUTROPHILS ABSOLUTE AUTO 5.5 x10^3/uL (1.8-7.7); NEUTROPHILS PERCENT AUTO 72.3 % (50.0-80.0); PLATELET COUNT,PLT 299 x10^3/uL (130-400); RED BLOOD CELL COUNT 2.85 x10^6/uL (4.5-6.0); WHITE BLOOD CELL COUNT,WBC 7.5 x10^3/uL (4.0-10.0)
[2024-09-15 07:08] LABS: ANION GAP 8.8 mmol/L (5-15); CREATININE 1.3 mg/dL (0.70-1.30); EST CRCL DRUG DOSING (CG) 67.23 mL/min; MAGNESIUM 1.6 mg/dL (1.8-2.4); POTASSIUM,K 3.8 mmol/L (3.5-5.1)
[2024-09-15] MEDS: Pregabalin 25 MG Cap PO SCH (08:03)
[2024-09-15] MEDS: Magnesium Oxide 400 MG Tab PO SCH (11:29)
[2024-09-15] MEDS: Furosemide 40 MG/4 ML VIAL IV SCH (14:44)
[2024-09-16 06:52] LABS: BASOPHILS PERCENT AUTO 0.6 % (0.2-1.2); EOSINOPHILS ABSOLUTE AUTO 0.3 x10^3/uL (0.0-0.5); EOSINOPHILS PERCENT AUTO 4.1 % (0.0-4.0); HEMOGLOBIN 9.4 g/dL (14.0-18.0); IMMATURE GRAN ABSOLUTE AUTO 0.02 x10^3/uL (0.00-0.07); LYMPHOCYTES PERCENT AUTO 14.6 % (25.0-50.0); MEAN CORPUSCULAR HEMOGLOBIN 31.5 pg (26.0-32.0); MEAN CORPUSCULAR HGB CONC 33.6 g/dL (32.0-36.0); MONOCYTES ABSOLUTE AUTO 0.6 x10^3/uL (0.0-0.8); MONOCYTES PERCENT AUTO 8.6 % (2.0-11.0); NEUTROPHILS ABSOLUTE AUTO 4.8 x10^3/uL (1.8-7.7); NEUTROPHILS PERCENT AUTO 71.8 % (50.0-80.0); PLATELET COUNT,PLT 329 x10^3/uL (130-400); RED BLOOD CELL COUNT 2.98 x10^6/uL (4.5-6.0); WHITE BLOOD CELL COUNT,WBC 6.6 x10^3/uL (4.0-10.0)
[2024-09-16] MEDS ORDERED: Levothyroxine 100 MCG Tab PO SCH (07:00)
[2024-09-16 07:31] LABS: ANION GAP 6.6 mmol/L (5-15); CREATININE 1.2 mg/dL (0.70-1.30); EST CRCL DRUG DOSING (CG) 72.83 mL/min; POTASSIUM,K 3.6 mmol/L (3.5-5.1)
[2024-09-16 08:41] LABS: MAGNESIUM 1.6 mg/dL (1.8-2.4)
[2024-09-16 10:13] VITALS: BP 106/68; PULSE 69
[2024-09-16] MEDS: Spironolactone 25 MG Tab PO SCH (13:00)
[2024-09-16] MEDS: Torsemide 20 MG Tab PO SCH (13:00)
[2024-09-16 20:06] LABS: THYROXINE, TOTAL T4 7.04 ug/dL (4.50-11.70)
[2024-09-16 21:06] LABS: ACTH 42.2 pg/mL (7.2-63.3)
== END 2024-09-16 13:10 | disposition swing bed (61) | DRG 291 ==
LOC: VM.MS 16:45
PROVIDERS: ADMIT Family Medicine; ATTEND Family Medicine
DX: I50.23 Acute on chronic systolic (congestive) heart failure (principal); E43 Unspecified severe protein-calorie malnutrition; J96.01 Acute respiratory failure with hypoxia; E87.1 Hypo-osmolality and hyponatremia; I47.20 Ventricular tachycardia, unspecified; Z66 Do not resuscitate; E03.9 Hypothyroidism, unspecified; E78.5 Hyperlipidemia, unspecified; I25.10 Atherosclerotic heart disease of native coronary artery without angina pectoris; I25.5 Ischemic cardiomyopathy; K21.9 Gastro-esophageal reflux disease without esophagitis; I48.91 Unspecified atrial fibrillation; R33.9 Retention of urine, unspecified; N28.9 Disorder of kidney and ureter, unspecified; I95.9 Hypotension, unspecified; J98.4 Other disorders of lung; D63.8 Anemia in other chronic diseases classified elsewhere; E11.649 Type 2 diabetes mellitus with hypoglycemia without coma; E83.42 Hypomagnesemia; E11.40 Type 2 diabetes mellitus with diabetic neuropathy, unspecified; J44.9 Chronic obstructive pulmonary disease, unspecified; N50.89 Other specified disorders of the male genital organs; E11.319 Type 2 diabetes mellitus with unspecified diabetic retinopathy without macular edema; Z79.899 Other long term (current) drug therapy; Z79.82 Long term (current) use of aspirin; I25.2 Old myocardial infarction; Z95.5 Presence of coronary angioplasty implant and graft; Z95.0 Presence of cardiac pacemaker; Z79.51 Long term (current) use of inhaled steroids; Z79.4 Long term (current) use of insulin; Z68.28 Body mass index [BMI] 28.0-28.9, adult
CPT/HCPCS: 36415; 36430; 51702; 70450; 71046; 80048; 81003; 82024; 82533; 82947; 82977; 83735; 83880; 84156; 84436; 84443; 84481; 84484; 85025; 86140; 86850; 86900; 86901; 86920; 86922; 93005; 94640; 94760; 97110-GP; 97162-GP; 97165-GO; A9270-GY; J1650; J1815-GY; J1940; J3490; J7613-GY; J7620-GY; P9016

== ENCOUNTER 2024-09-16 10:56 | Inpatient (IN) | payer MEDICAID, MEDICARE ==
[2024-09-16] MEDS ORDERED: Glucagon,Human Recombinant 1 MG Vial IM PRN ×2 (12:00)
[2024-09-16] MEDS ORDERED: Sodium Chloride 0.9% 10 ML Syringe FLUSH PRN ×2 (12:00)
[2024-09-16] MEDS ORDERED: Nitroglycerin 0.4 MG Tab.SL SL PRN (12:00)
[2024-09-16] MEDS ORDERED: 50% Dextrose in Water 50 ML Syringe IVPUSH PRN (12:00)
[2024-09-16] MEDS: Albuterol 0.083% 2.5 MG/3 ML Neb Soln NEB PRN (16:30)
[2024-09-16] MEDS: Torsemide 20 MG Tab PO SCH (16:30)
[2024-09-16] MEDS: Acetaminophen 650 MG Tab.ER PO PRN (16:55)
[2024-09-16] MEDS: Midodrine 5 MG Tab PO SCH (17:00)
[2024-09-16] MEDS: Insulin Lispro 100 Units/ML 3 ML Vial SUBCUT SCH (17:01)
[2024-09-16] MEDS: Albuterol/Ipratropium 3.0-0.5 MG/3 ML Neb Soln NEB SCH (17:10)
[2024-09-16] MEDS ORDERED: Pregabalin 25 MG Cap PO SCH (21:00)
[2024-09-16] MEDS: Arformoterol 15 MCG/2 ML Neb Soln INH SCH (21:19)
[2024-09-16] MEDS: Budesonide 0.5 MG/2 ML Neb Susp INH SCH (21:19)
[2024-09-16] MEDS: Melatonin 3 MG Tab PO SCH (21:20)
[2024-09-16] MEDS: Pregabalin 25 MG Cap PO SCH (21:20)
[2024-09-16] MEDS: Magnesium Oxide 400 MG Tab PO SCH (21:20)
[2024-09-17] MEDS: Ondansetron 4 MG in Sodium Chloride 0.9% 100 ML IV PRN (02:35)
[2024-09-17] MEDS: Iopamidol 612 MG/ML 100 ML Bottle IVPUSH ONE (03:22)
[2024-09-17] MEDS: Levothyroxine 100 MCG Tab PO SCH (06:06)
[2024-09-17] MEDS: Pantoprazole 40 MG Tab.CR PO SCH (06:06)
[2024-09-17] MEDS: Furosemide 40 MG/4 ML VIAL IVPUSH SCH ×2 (06:48→13:24)
[2024-09-17 06:58] LABS: BASOPHILS PERCENT AUTO 0.5 % (0.2-1.2); EOSINOPHILS ABSOLUTE AUTO 0.2 x10^3/uL (0.0-0.5); EOSINOPHILS PERCENT AUTO 2.8 % (0.0-4.0); HEMATOCRIT 29.1 % (40.0-52.0); HEMOGLOBIN 9.6 g/dL (14.0-18.0); IMMATURE GRAN ABSOLUTE AUTO 0.03 x10^3/uL (0.00-0.07); LYMPHOCYTES ABSOLUTE AUTO 0.8 x10^3/uL (1.0-4.8); LYMPHOCYTES PERCENT AUTO 9.8 % (25.0-50.0); MEAN CORPUSCULAR HEMOGLOBIN 31.4 pg (26.0-32.0); MEAN CORPUSCULAR VOLUME 95.1 fL (78.0-93.0); MONOCYTES ABSOLUTE AUTO 0.6 x10^3/uL (0.0-0.8); MONOCYTES PERCENT AUTO 7.9 % (2.0-11.0); NEUTROPHILS ABSOLUTE AUTO 6.3 x10^3/uL (1.8-7.7); NEUTROPHILS PERCENT AUTO 78.6 % (50.0-80.0); PLATELET COUNT,PLT 338 x10^3/uL (130-400); RED BLOOD CELL COUNT 3.06 x10^6/uL (4.5-6.0)
[2024-09-17 07:30] LABS: A/G RATIO 0.29; ALBUMIN 1.6 g/dL (3.4-5.0); BILIRUBIN TOTAL 0.3 mg/dL (0.2-1.0); CALCIUM 8.9 mg/dL (8.5-10.1); CREATININE 1.1 mg/dL (0.70-1.30); EST CRCL DRUG DOSING (CG) 79.45 mL/min; POTASSIUM,K 3.7 mmol/L (3.5-5.1); PROTEIN TOTAL,TP 7.2 g/dL (6.4-8.2)
[2024-09-17 07:31] LABS: ANION GAP 5.7 mmol/L (5-15)
[2024-09-17] MEDS: Insulin Glarg,Human.Rec.Analog 100 Unit/ML 10 ML Vial SUBCUT SCH (08:53)
[2024-09-17] MEDS: Aspirin 81 MG Tab.EC PO SCH (09:02)
[2024-09-17] MEDS: atorvaSTATin 40 MG Tab PO SCH (09:02)
[2024-09-17] MEDS: Levofloxacin 500 MG Tab PO SCH (09:02)
[2024-09-17] MEDS: Multivitamin Tab PO SCH (09:02)
[2024-09-17] MEDS: Spironolactone 25 MG Tab PO SCH (09:03)
[2024-09-17] MEDS: Metoprolol Succinate 25 MG Tab.ER PO SCH (09:03)
[2024-09-17] MEDS: Enoxaparin 40 MG/0.4 ML Syringe SUBCUT SCH (09:08)
[2024-09-17] MEDS: Lactulose Soln 10 GM/15 ML 30 ML UD Cup PO SCH (09:08)
[2024-09-17] MEDS ORDERED: Ondansetron 4 MG/2 ML SDV IVPUSH PRN (10:19)
[2024-09-18] MEDS: 50% Dextrose in Water 50 ML Syringe IVPUSH PRN (06:52)
[2024-09-18 07:51] LABS: HEMOGLOBIN 9.9 g/dL (14.0-18.0); MEAN CORPUSCULAR HEMOGLOBIN 30.6 pg (26.0-32.0); MEAN CORPUSCULAR HGB CONC 31.9 g/dL (32.0-36.0); MEAN CORPUSCULAR VOLUME 95.7 fL (78.0-93.0); RED BLOOD CELL COUNT 3.24 x10^6/uL (4.5-6.0); WHITE BLOOD CELL COUNT,WBC 8.4 x10^3/uL (4.0-10.0)
[2024-09-18 08:06] LABS: CREATININE 1.3 mg/dL (0.70-1.30); EST CRCL DRUG DOSING (CG) 67.23 mL/min; MAGNESIUM 1.8 mg/dL (1.8-2.4); POTASSIUM,K 4.5 mmol/L (3.5-5.1)
[2024-09-18 08:09] LABS: ANION GAP 7.5 mmol/L (5-15)
[2024-09-18] MEDS: Insulin Glarg,Human.Rec.Analog 100 Unit/ML 10 ML Vial SUBCUT SCH (08:35)
[2024-09-18] MEDS: Sodium Chloride 0.9% 10 ML Syringe FLUSH PRN (09:45)
[2024-09-19] MEDS: Ondansetron 4 MG/2 ML SDV IVPUSH PRN (00:55)
[2024-09-19] MEDS: Aluminum Hydroxide/Magnesium Hydroxide/Simethicone Susp 30 ML Cup PO PRN (02:42)
[2024-09-19] MEDS ORDERED: Naloxone 0.4 MG/ML SDV IVPUSH PRN (03:43)
[2024-09-19] MEDS: Morphine 2 MG/ML SYRINGE IM ONE (03:53)
[2024-09-19 04:32] LABS: BASOPHILS PERCENT AUTO 0.3 % (0.2-1.2); EOSINOPHILS ABSOLUTE AUTO 0.1 x10^3/uL (0.0-0.5); HEMATOCRIT 27.6 % (40.0-52.0); HEMOGLOBIN 9.2 g/dL (14.0-18.0); IMMATURE GRAN ABSOLUTE AUTO 0.03 x10^3/uL (0.00-0.07); LYMPHOCYTES ABSOLUTE AUTO 0.7 x10^3/uL (1.0-4.8); LYMPHOCYTES PERCENT AUTO 6.4 % (25.0-50.0); MEAN CORPUSCULAR HEMOGLOBIN 31.7 pg (26.0-32.0); MEAN CORPUSCULAR HGB CONC 33.3 g/dL (32.0-36.0); MEAN CORPUSCULAR VOLUME 95.2 fL (78.0-93.0); MONOCYTES ABSOLUTE AUTO 0.8 x10^3/uL (0.0-0.8); MONOCYTES PERCENT AUTO 7.3 % (2.0-11.0); NEUTROPHILS ABSOLUTE AUTO 9.8 x10^3/uL (1.8-7.7); NEUTROPHILS PERCENT AUTO 84.7 % (50.0-80.0); PLATELET COUNT,PLT 304 x10^3/uL (130-400); WHITE BLOOD CELL COUNT,WBC 11.6 x10^3/uL (4.0-10.0)
[2024-09-19 04:53] LABS: A/G RATIO 0.34; ALBUMIN 1.7 g/dL (3.4-5.0); ANION GAP 7.3 mmol/L (5-15); BILIRUBIN TOTAL 0.3 mg/dL (0.2-1.0); CREATININE 1.3 mg/dL (0.70-1.30); EST CRCL DRUG DOSING (CG) 67.23 mL/min; POTASSIUM,K 4.3 mmol/L (3.5-5.1); PROTEIN TOTAL,TP 6.7 g/dL (6.4-8.2)
[2024-09-19] MEDS: Ketorolac 15 MG/ML SDV IVPUSH ONE (06:23)
[2024-09-19] MEDS: Iopamidol 755 Mg/ML 100 ML Bottle IVPUSH ONE (07:47)
[2024-09-19] MEDS: Iopamidol 612 MG/ML 100 ML Bottle IVPUSH ONE (08:02)
[2024-09-19] MEDS ORDERED: HYDROmorphone 1 MG/ML Syringe IVPUSH PRN (10:02)
[2024-09-19] MEDS: HYDROmorphone 0.5 MG/0.5 ML Syringe IVPUSH PRN (11:20)
[2024-09-19 11:40] LABS: APPEARANCE,URINE CLEAR (CLEAR); BILIRUBIN,URINE NEGATIVE (NEGATIVE); COLOR,URINE YELLOW (YELLOW); GLUCOSE,URINE NEGATIVE (NEGATIVE); KETONES,URINE NEGATIVE (NEGATIVE); LEUKOCYTE ESTERASE,URINE NEGATIVE (NEGATIVE); NITRITE,URINE NEGATIVE (NEGATIVE); OCCULT BLOOD,URINE NEGATIVE (NEGATIVE); PROTEIN,URINE TRACE mg/dL (NEGATIVE); UROBILINOGEN,URINE 0.2 EU/dL (0.2)
[2024-09-19 12:06] LABS: AMORPHOUS SEDIMENT,URINE NOT SEEN; BACTERIA,URINE NOT SEEN /HPF (NOT SEEN); MUCUS,URINE NOT SEEN /LPF (NOT SEEN); RBC,URINE NOT SEEN /HPF (NOT SEEN); SQUAMOUS EPITHELIAL CELLS,UR OCCASIONAL /HPF (NOT SEEN); WBC,URINE 0-5 /HPF (NOT SEEN)
[2024-09-20 07:17] LABS: HEMATOCRIT 29.5 % (40.0-52.0); HEMOGLOBIN 9.8 g/dL (14.0-18.0); MEAN CORPUSCULAR HEMOGLOBIN 31.1 pg (26.0-32.0); MEAN CORPUSCULAR HGB CONC 33.2 g/dL (32.0-36.0); MEAN CORPUSCULAR VOLUME 93.7 fL (78.0-93.0); RED BLOOD CELL COUNT 3.15 x10^6/uL (4.5-6.0); WHITE BLOOD CELL COUNT,WBC 17.5 x10^3/uL (4.0-10.0)
[2024-09-20 07:38] LABS: BILIRUBIN TOTAL 0.6 mg/dL (0.2-1.0); POTASSIUM,K 4.5 mmol/L (3.5-5.1)
[2024-09-20 08:03] LABS: A/G RATIO 0.32; ALBUMIN 1.7 g/dL (3.4-5.0); CALCIUM 9.2 mg/dL (8.5-10.1); CREATININE 1.6 mg/dL (0.70-1.30); EST CRCL DRUG DOSING (CG) 54.62 mL/min; TSH ULTRASENSITIVE 57.427 uIU/mL (0.358-3.74)
[2024-09-20 08:05] LABS: ANION GAP 7.5 mmol/L (5-15)
[2024-09-20] MEDS: Amoxicillin/Clavulanate K 875-125 MG Tab PO SCH (11:39)
[2024-09-21 06:35] LABS: HEMATOCRIT 27.3 % (40.0-52.0); MEAN CORPUSCULAR HEMOGLOBIN 30.6 pg (26.0-32.0); MEAN CORPUSCULAR VOLUME 92.9 fL (78.0-93.0); PLATELET COUNT,PLT 289 x10^3/uL (130-400); RED BLOOD CELL COUNT 2.94 x10^6/uL (4.5-6.0)
[2024-09-21 06:38] LABS: WHITE BLOOD CELL COUNT,WBC 22.5 x10^3/uL (4.0-10.0)
[2024-09-21 06:48] LABS: BAND PERCENT MAN 5 % (0-6); LYMPHOCYTES ABSOLUTE MAN 0.9 x10^3/uL (1.0-4.8); LYMPHOCYTES PERCENT MAN 4 % (25-50); MONOCYTES ABSOLUTE MAN 1.8 x10^3/uL (0.0-0.8); MONOCYTES PERCENT MAN 8 % (2-11); NEUTROPHILS ABSOLUTE MAN 19.8 x10^3/uL (1.8-7.7); SEG NEUTROPHILS PERCENT MAN 83 % (50-80)
[2024-09-21 06:49] LABS: PLATELET COUNT ESTIMATE ADEQUATE
[2024-09-21 07:04] LABS: A/G RATIO 0.28; ALBUMIN 1.5 g/dL (3.4-5.0); BILIRUBIN TOTAL 0.8 mg/dL (0.2-1.0); CALCIUM 9.1 mg/dL (8.5-10.1); CREATININE 2.1 mg/dL (0.70-1.30); EST CRCL DRUG DOSING (CG) 41.62 mL/min; POTASSIUM,K 4.9 mmol/L (3.5-5.1); PROTEIN TOTAL,TP 6.9 g/dL (6.4-8.2)
[2024-09-21 07:15] LABS: ANION GAP 7.9 mmol/L (5-15)
[2024-09-21 07:16] LABS: C-REACTIVE PROTEIN 33.93 mg/dL (<=0.50)
[2024-09-21] MEDS: HYDROmorphone 2 MG Tab PO PRN (11:59)
[2024-09-22] MEDS ORDERED: Haloperidol Lactate 5 MG/ML SDV IV PRN (16:13)
[2024-09-22] MEDS ORDERED: LORazepam 0.5 MG Tab PO PRN (16:30)
[2024-09-22] MEDS ORDERED: Bisacodyl 10 MG Supp RECTAL PRN (16:38)
[2024-09-22] MEDS ORDERED: Ondansetron 4 MG Tab.DIS PO PRN (16:38)
[2024-09-22] MEDS ORDERED: Morphine Oral Concentrate 20 MG/ML 30 ML Bottle PO PRN (16:41)
[2024-09-22] MEDS ORDERED: Hyoscyamine 0.125 MG/ML Bottle PO PRN (16:43)
[2024-09-22] MEDS: HYDROmorphone 2 MG Tab PO SCH (19:39)
[2024-09-23] MEDS: HYDROmorphone 2 MG Tab PO PRN (04:22)
[2024-09-23] MEDS: Sennosides 8.6 MG Tab PO SCH (08:49)
[2024-09-24] MEDS ORDERED: HALOPERIDOL LACTATE 2 MG/ML SL PRN (10:28)
[2024-09-24] MEDS ORDERED: Ondansetron 4 MG Tab.DIS (OWN SUPPLY) PO PRN (10:42)
[2024-09-24] MEDS: HYDROMORPHONE 2 MG PO SCH (14:10)
[2024-09-24] MEDS ORDERED: Insulin Lispro 100 Units/ML 3 ML Vial SUBCUT SCH (18:00)
[2024-09-24] MEDS: Insulin Lispro 100 Units/ML 3 ML Vial SUBCUT SCH (18:19)
[2024-09-25] MEDS: Insulin Glarg,Human.Rec.Analog 100 Unit/ML SUBCUT SCH (08:00)
[2024-09-25] MEDS: Sennosides/Docusate Sodium 50-8.6 MG Tab PO SCH (09:03)
[2024-09-25] MEDS ORDERED: Albuterol 0.083% 2.5 MG/3 ML Neb Soln (OWN SUPPLY) NEB PRN (15:21)
[2024-09-25] MEDS: ALBUTEROL NEB SCH (20:55)
[2024-09-25] MEDS: IPRATROPIUM NEB SCH (20:55)
[2024-09-26] MEDS: Pantoprazole 40 MG Tab.CR (OWN SUPPLY) PO SCH (06:03)
[2024-09-26] MEDS: LEVOTHYROXINE 175 MCG PO SCH (06:03)
[2024-09-26] MEDS: Spironolactone 25 MG Tab (OWN SUPPLY) PO SCH (08:36)
[2024-09-26] MEDS: HYDROMORPHONE 2 MG PO PRN (14:22)
[2024-09-27] MEDS: Lidocaine 2% HCl 11 ML Jelly Filled Syringe MUCMEM PRN (04:07)
[2024-09-27] MEDS: Furosemide 40 MG Tab (OWN SUPPLY) PO SCH (17:00)
[2024-09-28] MEDS: LORazepam 0.5 MG Tab (OWN SUPPLY) PO PRN (22:08)
[2024-09-30] MEDS: Morphine Oral Concentrate 20 MG/ML 30 ML Bottle PO PRN (13:47)
[2024-10-01] MEDS: LACTULOSE 20 GM/30 ML PO SCH (08:48)
[2024-10-01] MEDS: PREGABALIN 25 MG PO SCH (21:21)
[2024-10-01] MEDS: MIDODRINE 10 MG PO SCH (21:23)
[2024-10-03] MEDS: HYOSCYAMINE 0.125 MG PO PRN (11:01)
[2024-10-07] MEDS: Insulin Glarg,Human.Rec.Analog 100 Unit/ML 10 ML Vial SUBCUT SCH (09:38)
[2024-10-16] MEDS: Midodrine 5 MG Tab PO SCH (18:18)
[2024-10-18 08:42] VITALS: BP 93/58; PULSE 62
== END 2024-10-18 13:10 | disposition hospice, inpatient (51) | DRG 291 ==
LOC: VM.MS 13:10
PROVIDERS: ADMIT Family Medicine; ATTEND Family Medicine
PROC: 0T9B70Z Drainage of Bladder with Drainage Device, Via Natural or Artificial Opening (ICD-10-PCS; principal; 2024-09-16)
DX: I50.33 Acute on chronic diastolic (congestive) heart failure (principal); E43 Unspecified severe protein-calorie malnutrition; J18.9 Pneumonia, unspecified organism; N17.9 Acute kidney failure, unspecified; K80.10 Calculus of gallbladder with chronic cholecystitis without obstruction; N30.00 Acute cystitis without hematuria; E87.1 Hypo-osmolality and hyponatremia; Z51.5 Encounter for palliative care; Z66 Do not resuscitate; R53.1 Weakness; I50.32 Chronic diastolic (congestive) heart failure; E03.9 Hypothyroidism, unspecified; I95.9 Hypotension, unspecified; I25.10 Atherosclerotic heart disease of native coronary artery without angina pectoris; K21.9 Gastro-esophageal reflux disease without esophagitis; E11.40 Type 2 diabetes mellitus with diabetic neuropathy, unspecified; E11.319 Type 2 diabetes mellitus with unspecified diabetic retinopathy without macular edema; R33.9 Retention of urine, unspecified; K59.00 Constipation, unspecified; E11.22 Type 2 diabetes mellitus with diabetic chronic kidney disease; N18.9 Chronic kidney disease, unspecified; D72.829 Elevated white blood cell count, unspecified; E83.42 Hypomagnesemia; H53.8 Other visual disturbances; E11.65 Type 2 diabetes mellitus with hyperglycemia; N48.89 Other specified disorders of penis; Z68.24 Body mass index [BMI] 24.0-24.9, adult
CPT/HCPCS: 36415; 51702; 74177; 76705; 80048; 80053; 81001; 82947; 83605; 83690; 83735; 83880; 84145; 84443; 84484; 85025; 85027; 86140; 93005; 93010; 94640; 94760; 95851-GO; 97110-GP; 97116-GP; 97535-GO; 99307; 99307-GT; A9270-GY; J1171; J1650; J1815-GY; J1885; J1940; J2270; J2405; J3490; J7613-GY; J7620-GY; Q3014; Q9967